=== PATIENT | male | born 1995 | race Caucasian/White ===

== ENCOUNTER 2016-07-18 23:18 | Emergency (ER) | payer OTHER ==
[~2016-07-18 23:18] MED LIST: DEPAKOTE
[2016-07-19] MEDS ORDERED: NAPROSYN500 M1 PO (00:21)
== END 2016-07-19 00:25 ==
LOC: EDMED 23:18
DX: S60.221A Contusion of right hand, initial encounter (principal); G40.909 Epilepsy, unspecified, not intractable, without status epilepticus; Z79.899 Other long term (current) drug therapy; W22.8XXA Striking against or struck by other objects, initial encounter; Y92.019 Unspecified place in single-family (private) house as the place of occurrence of the external cause